=== PATIENT | male | born 1970 | race Two or more races ===

== ENCOUNTER 2017-11-09 12:32 | Emergency (ER) | payer BC ==
[~2017-11-09] VITALS: Ht 162.6 cm; Wt 79.4 kg
[2017-11-09] MEDS ORDERED: NKM (12:41)
[2017-11-09 12:42] VITALS: BP 134/77
[2017-11-09] MEDS ORDERED: Lidocaine 2% Visc 15ml soln ORAL ONE (13:15)
[2017-11-09] MEDS ORDERED: Dicyclomine HCl 10mg/5ml oral soln ORAL ONE (13:15)
[2017-11-09] MEDS ORDERED: Mylanta II UD 30ml ORAL ONE (13:15)
--- NOTE | 2017-11-09 13:22 | Emergency Room Report ---
History of Present Illness General Chief Complaint: Abdominal Pain Source: Patient Present Illness HPI 46-year-old male patient presents to ER complaining of right upper quadrant abdominal pain for the past 8 days. Reports pain is constant, states that it radiates to his back. Reports nausea. Denies vomiting or fever. Reports diarrhea symptoms for the past 2 days. Denies blood in diarrhea. Denies constipation. Denies contacts with similar symptoms at home. Reports pain is worse with movement. Denies history of trauma. Denies chest pain, shortness of breath. Denies history of GI problems or cardiovascular disease. Denies dysuria, hematuria. reports history of kidney stones, states this pain does not feel similar. reports eating a lot of spicy foods and a lot of burping. Denies urinary retention symptoms. Allergies: Coded Allergies: No Known Allergies (Unverified , 11/09/17) Patient History Past Medical History: see triage record Reviewed Nursing Documentation: PMH: Agreed; PSxH: Agreed Nursing Documentation-PMH Past Medical History: No Stated History Review of Systems All Other Systems: negative except mentioned in HPI Physical Exam Vital Signs Date Time Temp Pulse Resp B/P (MAP) Pulse Ox O2 Delivery O2 Flow Rate FiO2 11/09/17 12:34 97.4 74 18 141/97 96 Room Air 97.3 Sp02 EP Interpretation: reviewed, normal General Appearance: well appearing, no apparent distress, alert, GCS 15, non- toxic Head: normocephalic, atraumatic ENT: hearing grossly normal, normal pharynx, no angioedema, normal voice, uvula midline, moist mucus membranes Neck: full range of motion Respiratory: lungs clear, normal breath sounds, no rhonchi, no respiratory distress, no accessory muscle use, no wheezing, speaking full sentences Cardiovascular #2: 2+ radial (R), 2+ radial (L) Gastrointestinal: soft, no mass, non-distended, no guarding, no pulsatile mass , no rebound, tenderness - positive Boyd sign, other - Negative Rovsing, negative obturator Genitourinary: no CVA tenderness Musculoskeletal: back normal, digits/nails normal, gait/station normal, normal range of motion, non-tender Psychiatric: mood/affect normal Skin: no rash Medical Decision Making PA Attestation Dr. Briceño is my supervising Physician whom patient management has been discussed with.Dr. Briceño is my supervising Physician whom patient management has been discussed with. Diagnostic Impression: Primary Impression: Acid reflux Additional Impressions: History of kidney stones Renal calculi Renal cyst ER Course Pt. presents to the ED c/o abdominal pain and vomiting. Ddx considered but are not limited to UTI, cholelithiasis, cholecystitis, biliary colic, pancreatitis, muscle strain, GERD, reflux. negative Rovsing, negative obturator, negative heel tap, low suspicion for appendicitis. Patient denies dysuria, hematuria, no flank pain, low suspicion for kidney stones. Patient is nontoxic-appearing, not hypotensive, no abdominal pulsatile mass, no history of cardiovascular disease, low suspicion for AAA. patient has positive Boyd sign, we'll begin abdominal pain workup to rule out underlying pathology. Vital signs: are WNL, pt. is afebrile ORDERS: CBC, CMP, Lipase, UA, US abdomen, Zofran, GI cocktail. ER COURSE: CBC unremarkable, no elevation in WBCs CMP unremarkable, no elevation in LFTs Lipase WNL UA unremarkable, no microscopic hematuria Ultrasound shows no gallstones, no sludge Nonobstructive renal calculi likely related to patient hx of kidney stones, followup with urology. Return to ER for new or worsening of symptoms. Drink plenty of fluids. Renal cyst. Followup with for monitoring, does not require acute intervention at this time. Reports pain symptoms improved during ER stay. Patient is afebrile, elevation WBCs, US negative for gallstones, antibiotic treatment is not indicated at this time. Take Tylenol for pain. Provide omeprazole for possible GERD symptoms. Symptoms likely related to dyspepsia. Keep food journal. Avoid spicy foods and dairy. Bowel rest. F/u GI specialist. Request further imaging and discuss surgery if needed. Informed patient if any concerns about urinary retention, follow-up with urologist. Discuss prostate testing at that time. Return to ER if symptoms worsen. Patient reports relief of pain symptoms with medication while in ER. follow-up with PCP for referral to GI. It do not currently have PCP contact insurance provider to request provider to follow-up with. DISCHARGE: RX provided for Omeprazole Rx provided for Tylenol for pain At this time pt. is stable for d/c to home. Patient resting comfortably, in no acute distress, nontoxic appearing, talking without difficulty. Rx provided to patient. Patient to take medications as instructed Will provide with patient care instructions and any necessary prescriptions. Care plan and follow-up instructions provided. Patient instructed to follow-up with primary care provider in 3 - 5 days. Patient questions asked and answered. Patient reports understanding and agreement to treatment plan. ER precautions given. Patient instructed to return to ER immediately for any new or worsening of symptoms including but not limited to increasing SOB, persistent fever, worsening of pain symptoms, intractable vomiting, blood in stool, urine, and/or emesis. - Please note that this Emergency Department Report was dictated using Videumsim[employer] educator technology software, occasionally this can lead to erroneous entry secondary to interpretation by the dictation equipment. Labs Test 11/09/17 13:30 11/09/17 14:35 White Blood Count 9.6 K/UL (4.8-10.8) Red Blood Count 5.43 M/UL (4.70-6.10) Hemoglobin 16.4 G/DL (14.2-18.0) Hematocrit 48.5 % (42.0-52.0) Mean Corpuscular Volume 89 FL (80-99) Mean Corpuscular Hemoglobin 30.1 PG (27.0-31.0) Mean Corpuscular Hemoglobin Concent 33.7 G/DL (32.0-36.0) Red Cell Distribution Width 11.9 % (11.6-14.8) Platelet Count 258 K/UL (150-450) Mean Platelet Volume 8.5 FL (6.5-10.1) Neutrophils (%) (Auto) 56.7 % (45.0-75.0) Lymphocytes (%) (Auto) 33.2 % (20.0-45.0) Monocytes (%) (Auto) 8.2 % (1.0-10.0) Eosinophils (%) (Auto) 1.2 % (0.0-3.0) Basophils (%) (Auto) 0.8 % (0.0-2.0) Sodium Level 138 MMOL/L (136-145) Potassium Level 4.0 MMOL/L (3.5-5.1) Chloride Level 102 MMOL/L (98-107) Carbon Dioxide Level 26 MMOL/L (21-32) Anion Gap 11 mmol/L (5-15) Blood Urea Nitrogen 11 mg/dL (7-18) Creatinine 1.0 MG/DL (0.55-1.30) Estimat Glomerular Filtration Rate > 60 mL/min (>60) Glucose Level 98 MG/DL (74-106) Calcium Level 9.2 MG/DL (8.5-10.1) Total Bilirubin 0.2 MG/DL (0.2-1.0) Aspartate Amino Transf (AST/SGOT) 27 U/L (15-37) Alanine Aminotransferase (ALT/SGPT) 43 U/L (12-78) Alkaline Phosphatase 85 U/L (46-116) Total Protein 8.3 G/DL (6.4-8.2) Albumin 4.1 G/DL (3.4-5.0) Globulin 4.2 g/dL Albumin/Globulin Ratio 1.0 (1.0-2.7) Lipase 159 U/L (73-393) Urine Color Pale yellow Urine Appearance Clear Urine pH 6.5 (4.5-8.0) Urine Specific [place] 1.010 (1.005-1.035) Urine Protein Negative (NEGATIVE) Urine Glucose (UA) Negative (NEGATIVE) Urine Ketones Negative (NEGATIVE) Urine Occult Blood Negative (NEGATIVE) Urine Nitrite Negative (NEGATIVE) Urine Bilirubin Negative (NEGATIVE) Urine Urobilinogen Normal MG/DL (0.0-1.0) Urine Leukocyte Esterase Negative (NEGATIVE) CT/MRI/US Diagnostic Results CT/MRI/US Diagnostic Results : Imaging Test Ordered: Abdominal US Impression No acute findings. Nonobstructive renal calculi. Right renal cyst. Last Vital Signs Date Time Temp Pulse Resp B/P (MAP) Pulse Ox O2 Delivery O2 Flow Rate FiO2 11/09/17 12:42 97.3 68 18 134/77 96 Room Air 97.3 Disposition: HOME, SELF-CARE Condition: Stable Scripts Acetaminophen* (TYLENOL EXTRA STRENGTH*) 500 Mg Tablet 500 MG ORAL Q8H PRN for Prn Headache/Temp > 101, #30 TAB 0 Refills Prov: Tucker Skelton 11/09/17 Omeprazole Magnesium (PRILOSEC OTC) 20 Mg Tablet. 20 MG ORAL DAILY, #14 TAB Prov: Tucker Skelton 11/09/17 Patient Instructions: Abdominal Pain, Adult, Acute Urinary Retention, Male, Food Choices for Gastroesophageal Reflux Disease, Adult, [id number], Gastroesophageal Reflux Disease, Adult, Kidney Stones, [id number] Additional Instructions: Followup with primary care provider in 3 -5 days. Discuss referral to GI for further imaging and testing at that time. Follow-up with urology if concerns about urinary retention and to discuss kidney stone treatment. Denies retention symptoms at this time. Renal cyst should be monitored. Drink plenty of water. Avoid spicy foods and dairy. Take medications as directed. Patient questions asked and answered. ER precautions given, patient instructed to return to ER immediately for any new or worsening of symptoms. Tucker Skelton Nov 09, 2017 13:22
[2017-11-09] MEDS ORDERED: Ketorolac 30mg Inj IV ONE (13:30)
[2017-11-09 13:44] LABS: BASOPHILS % (AUTO) 0.8 % (0.0-2.0); EOSINOPHILS % (AUTO) 1.2 % (0.0-3.0); HEMATOCRIT 48.5 % (42.0-52.0); HEMOGLOBIN 16.4 G/DL (14.2-18.0); LYMPHOCYTES % (AUTO) 33.2 % (20.0-45.0); MEAN CORPUSCULAR VOLUME 89 FL (80-99); MONOCYTES % (AUTO) 8.2 % (1.0-10.0); NEUTROPHILS % (AUTO) 56.7 % (45.0-75.0); PLATELET COUNT 258 K/UL (150-450); RED BLOOD COUNT 5.43 M/UL (4.70-6.10); RED CELL DISTRIBUTION WIDTH 11.9 % (11.6-14.8); WHITE BLOOD COUNT 9.6 K/UL (4.8-10.8)
[2017-11-09 14:11] LABS: ANION GAP 11 mmol/L (5-15); BLOOD UREA NITROGEN 11 mg/dL (7-18); CALCIUM 9.2 MG/DL (8.5-10.1); CARBON DIOXIDE 26 MMOL/L (21-32); CHLORIDE 102 MMOL/L (98-107); SODIUM 138 MMOL/L (136-145)
[2017-11-09 14:15] LABS: ALANINE AMINOTRANSFERASE 43 U/L (12-78); ALBUMIN 4.1 G/DL (3.4-5.0); ALKALINE PHOSPHATASE 85 U/L (46-116); ASPARTATE AMINO TRANSFERASE 27 U/L (15-37); BILIRUBIN,TOTAL 0.2 MG/DL (0.2-1.0)
[2017-11-09 14:54] LABS: APPEARANCE,URINE CLEAR; BILIRUBIN, URINE NEGATIVE (NEGATIVE); COLOR,URINE PALE YELLOW; GLUCOSE, URINE (UA) NEGATIVE (NEGATIVE); KETONES,URINE NEGATIVE (NEGATIVE); LEUKOCYTE ESTERASE ,URINE NEGATIVE (NEGATIVE); NITRITE,URINE NEGATIVE (NEGATIVE); PH,URINE 6.5 (4.5-8.0); PROTEIN,URINE NEGATIVE (NEGATIVE); UROBILINOGEN,URINE NORMAL MG/DL (0.0-1.0)
[2017-11-09 15:00] VITALS: BP 120/80
[2017-11-09] MEDS ORDERED: TYLENOL EXTRA500 MG ORAL (15:50)
[2017-11-09] MEDS ORDERED: PRILOSEC OTC20 MG ORAL (15:50)
--- NOTE | 2017-11-09 16:17 | Diagnostic Imaging Report ---
Indication:Abdominal pain Technique: Grayscale and duplex Doppler imaging of the abdomen performed. Comparison: None Findings: The liver, demonstrated part of the pancreas, gallbladder, aorta and IVC, spleen appear unremarkable. There is no biliary ductal dilatation identified. CBD is 4 mm. Doppler evaluation of the main portal vein shows patency. There is no ascites. Small echogenic foci, likely stones are suspected within the kidneys. No hydronephrosis seen. 1.3 cm right renal cyst noted. Impression: No acute findings. Nonobstructive renal calculi. Right renal cyst
[2017-11-09 16:50] VITALS: BP 123/82
== END 2017-11-09 16:52 | disposition home or self-care (01) ==
LOC: EMR 13:30
DX: K21.9 Gastro-esophageal reflux disease without esophagitis (principal); N20.0 Calculus of kidney; Z87.442 Personal history of urinary calculi; N28.1 Cyst of kidney, acquired
CPT/HCPCS: 36415; 76700; 80053; 81003; 83690; 85025; 96360; 96374; 96375; 99284; J1885; J2405